=== PATIENT | female | born 1990 | race American Indian/Alaskan Native ===

== ENCOUNTER 2018-04-25 15:13 | Inpatient (IN) | payer OTHER, MEDICAID ==
[2018-04-25 16:31] LABS: Hematocrit 37.7 % (30.3-42.9); Hemoglobin 12.6 gm/dl (10.1-14.3); Mean Corpuscular HGB Conc 34 % (30-34); Mean Corpuscular Volume 83 fl (79-97); Platelet Count 194 K/mm3 (140-440); Red Blood Count 4.57 M/mm3 (3.65-5.03); Red Cell Distribution Width 15.3 % (13.2-15.2)
[2018-04-25 16:38] LABS: Bacteria,Urine 1+ /HPF (Negative); Bilirubin,Urine NEG (Negative); Blood,Urine NEG (Negative); Color,Urine Yellow (Yellow); Mucus,Urine FEW /HPF; Urobilinogen,Urine < 2.0 mg/dL (<2.0)
[2018-04-25 16:49] LABS: Alanine Aminotransferase 15 units/L (7-56); Uric Acid 3.8 mg/dL (3.5-7.6)
[2018-04-25] MEDS ORDERED: COLACE PO PRN (17:51)
[2018-04-25] MEDS ORDERED: AMBIEN PO PRN (17:51)
[2018-04-25] MEDS ORDERED: TYLENOL PO PRN (17:51)
[2018-04-25] MEDS ORDERED: TYLENOL PO ONE (17:51)
[2018-04-25 18:53] LABS: Basophils # (Auto) 0.1 K/mm3 (0.0-0.1); Basophils % (Auto) 0.5 % (0.0-1.8); Eosinophils # (Auto) 0.1 K/mm3 (0.0-0.4); Eosinophils % (Auto) 0.4 % (0.0-4.3); Hematocrit 38.4 % (30.3-42.9); Hemoglobin 12.8 gm/dl (10.1-14.3); Lymphocytes # (Auto) 1.7 K/mm3 (1.2-5.4); Lymphocytes % (Auto) 12.5 % (13.4-35.0); Mean Corpuscular HGB Conc 33 % (30-34); Mean Corpuscular Volume 82 fl (79-97); Monocytes # (Auto) 0.7 K/mm3 (0.0-0.8); Monocytes % (Auto) 5.3 % (0.0-7.3); Red Blood Count 4.66 M/mm3 (3.65-5.03); Red Cell Distribution Width 14.9 % (13.2-15.2)
[2018-04-25 18:54] LABS: Platelet Count 207 K/mm3 (140-440)
--- NOTE | 2018-04-25 19:11 | History and Physical Report ---
History of Present Illness Date of examination: 04/25/18 (pt sent from office with elevated BP) History of present illness: EDC Calculations LMP: 05/11/2018 Past History : 1 Term Births: 0 Premature Births: 0 Living Children: 0 Para: 0 Mult. Births: 0 Prev : 0 Prev. attempt? 0 Aborta: 0 Elect. Ab: 0 Spont. Ab: 0 Ectopics: 0 Past Medical History: Reviewed history from 02/02/2011 and no changes required: Asthma right leg varicosty - being followed by [facility] 2 years (not working d/t pain, previouly taking Gabapentin and tramadol for pain but has stopped for .) Past Surgical History: Reviewed history from 10/05/2012 and no changes required: negative Past Medical History Anesthesia Complications: negative Anemia: negative Autoimmune Disorder: negative Bleeding Disorder: negative Blood Transfusions: negative Breast Disease: negative Diabetes: negative Heart Disease: negative Hypertension: negative Hepatitis/Liver Disease: negative Kidney Disease/UTI: negative Neurologic/Epilepsy/Migraines: negative Phlebitis/Varicosities: negative Psychiatric: negative Pulmonary Disease/Asthma: negative Thyroid Disease: negative Hospitalizations: negative Surgery (Non-learning engineer): negative Abnormal PAP: negative Family Hx: mother - HTN and DM No Family History of Breast Cancer No Family History of Colon Cancer No Family History of Ovarvian Cancer No Family History of DVT/PE on OCP Social Hx: Patient is single no e/d/s 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 of genital herpes: no Partner hx. of genital herpes: no Rash, Viral, or Febrile illness since last LMP? no Varicella/Chicken Pox Status: Previous Disease Genetic History Congenital Heart Defect: Mom: no Dad: no Ailyn Disease: Mom: no Dad: no Thalassemia Mom: no Dad: no Neural Tube Defect Mom: no Dad: no Down's Syndrome Mom: no Dad: no Jean-Sachs Mom: no Dad: no Sickle Cell Disease/Trait Mom: no Dad: no Hemophilia Mom: no Dad: no Muscular Dystrophy Mom: no Dad: no Cystic Fibrosis Mom: no Dad: no [place] Chorea Mom: no Dad: no Mental Retardation Mom: no Dad: no Fragile X Mom: no Dad: no Other Genetic/Chromosomal Disorder Mom: no Dad: no Child w/other defect Mom: no Dad: no Enviromental Exposures Xray Exposure: no Medication, drug, or alcohol use since LMP: no Chemical/Other Exposure: no Exposure to Cat Liter: no Hx of Parvovirus (Fifth Disease): no Occupational Exposure to Children: none Active Medications (reviewed today): SHELL FISH () FLAGYL 500 MG ORAL TABLET (METRONIDAZOLE) 1 PO BID x 7 days Current Allergies (reviewed today): * SEAFOOD (Critical) Past History - Obstetrical History Expected Date of Delivery: 05/11/18 Actual Gestation: 37 Week(s) 6 Day(s) : 1 Para: 0 Hx # Term Pregnancies: 0 Number of Pregnancies: 0 Spontaneous Abortions: 0 Induced : 0 Number of Living Children: 0 Medications and Allergies Allergies Allergy/AdvReac Type Severity Reaction Status Date / Time shellfish derived Allergy Angioedema Verified 04/07/18 05:31 seafood Allergy Angioedema Uncoded 04/07/18 05:31 Home Medications Medication Instructions Recorded Confirmed Last Taken Type Vit-Fe Fumar-FA [ 1 tab PO QDAY 04/07/18 04/25/18 04/25/18 History Vitamin] metFORMIN [Glucophage] 500 mg PO BID 04/25/18 04/25/18 04/25/18 09:00 History Active Meds: Active Medications Acetaminophen (Tylenol) 650 mg PO Q4H PRN PRN Reason: Pain MILD(1-3)/Fever >100.5/TOPETE Docusate Sodium (Colace) 100 mg PO Q12H PRN PRN Reason: Constipation Multivitamins/Iron/Calcium ( Vitamin) 1 each PO QDAY OMER Zolpidem Tartrate (Ambien) 10 mg PO ONCE PRN PRN Reason: Sleep - Vital Signs Vital signs: Vital Signs Pulse BP 95 H 136/64 04/25/18 15:31 04/25/18 15:31 Temp Pulse Resp BP Pulse Ox 98.6 F 88 16 130/65 04/25/18 18:40 04/25/18 18:40 04/25/18 18:40 04/25/18 18:40 - Physical Exam Breasts: Positive: deferred Cardiovascular: Regular rate, Normal S1, Normal S2 Lungs: Positive: Clear to auscultation, Normal air movement Abdomen: Positive: normal appearance, soft, normal bowel sounds. Negative: distention, tenderness Genitourinary (Female): Positive: normal external genitalia, normal perenium Vulva: both: normal Vagina: Positive: normal moisture. Negative: discharge Cervix: Negative: lesion, discharge Uterus: Positive: normal size, normal contour Adnexa: both: normal Anus/Rectum: Positive: normal perianal skin, heme negative. Negative: rectal mass, hemorrhoids Extremities: Positive: normal Deep Tendon Reflex Grade: Normal +2 - Obstetrical FHR: category 1 Uterine Contraction Monitor Mode: External Cervical Dilatation: 0.5 Cervical Effacement Percentage: 40 station: -3 Uterine Contraction Pattern: Irregular Uterine Tone Measurement Phase: Resting Uterine Contraction Intensity: Mild Results Result Diagrams: 04/25/18 18:10 04/25/18 15:45 Abnormal lab results 04/25/18 04/25/18 04/25/18 Range/Units 15:45 15:45 18:10 WBC 13.8 H (4.5-11.0) K/mm3 MCH 27 L (28-32) pg RDW 15.3 H (13.2-15.2) % Lymph % (Auto) 12.5 L (13.4-35.0) % Seg Neutrophils % 81.3 H (40.0-70.0) % Seg Neutrophils # 11.2 H (1.8-7.7) K/mm3 Creatinine 0.5 L (0.7-1.2) mg/dL Lactate Dehydrogenase 287 H (91-180) units/L All other labs normal. GBS Positive WHITE BLOOD CELL COUNT 8.3 Thousand/uL 3.8-10.8 *1 RED BLOOD CELL COUNT 5.00 Million/uL 3.80-5.10 *2 HEMOGLOBIN 13.5 g/dL 11.7-15.5 *3 HEMATOCRIT 40.5 % 35.0-45.0 *4 MCV 81.0 fL 80.0-100.0 *5 MCH 27.0 pg 27.0-33.0 *6 MCHC 33.3 g/dL 32.0-36.0 *7 RDW 13.8 % 11.0-15.0 *8 PLATELET COUNT 267 Thousand/uL 140-400 *9 MPV 11.1 fL 7.5-12.5 *10 ABSOLUTE NEUTROPHILS 6142 cells/uL 6833-1275 *11 ABSOLUTE LYMPHOCYTES 1527 cells/uL 850-3900 *12 ABSOLUTE MONOCYTES 540 cells/uL 200-950 *13 ABSOLUTE EOSINOPHILS 58 cells/uL 15-500 *14 ABSOLUTE BASOPHILS 33 cells/uL 0-200 *15 NEUTROPHILS 74 % *16 LYMPHOCYTES 18.4 % *17 MONOCYTES 6.5 % *18 EOSINOPHILS 0.7 % *19 BASOPHILS 0.4 % *20 Tests: (2) OBSTETRIC PANEL ([id number]=) ANTIBODY SCREEN, RBC W/REFL ID, TITER AND AG "Result Below..." *21 RESULT: NO ANTIBODIES DETECTED Reference range No antibodies detected This assay is a screening test for the detection of red blood cell antibodies. The test is not to be used for pretransfusion screening or for the medical management of an alloimmunized . Tests: (3) OBSTETRIC PANEL ([id number]=) ABO GROUP B *22 RH TYPE RH(D) POSITIVE *23 Tests: (4) OBSTETRIC PANEL ([id number]=) RPR (DX) W/REFL TITER AND CONFIRMATORY TESTING NON-REACTIVE NON-REACTIVE *24 Tests: (5) OBSTETRIC PANEL ([id number]=) HEPATITIS B SURFACE ANTIGEN NON-REACTIVE NON-REACTIVE *25 Tests: (6) OBSTETRIC PANEL ([id number]=) RUBELLA ANTIBODY (IGG) 2.99 index *26 Index Interpretation ----- <0.90 Not consistent with Immunity 0.90-0.99 Equivocal > or = 1.00 Consistent with Immunity The presence of rubella IgG antibody suggests immunization or past or current infection with rubella virus. Tests: (7) CYSTIC FIBROSIS SCREEN ([id number]=) ! ETHNICITY: N/P *27 ! CF RESULT see note *28 NEGATIVE, NONE OF THE MUTATIONS LISTED Tests: (8) SICKLE CELL SCREEN W/REFL HEMOGLOBINOPATHY EVAL ([id number]=) SICKLE CELL SCREEN NEGATIVE NEGATIVE *33 Hemoglobin solubility testing alone is insufficient for detecting or confirming the presence of sickling hemoglobins in some situations. Additional testing may be required for diagnosis of hemoglobinopathies. For more information on this test go to: [email or web address]/[email or web address] Tests: (9) HEPATITIS C AB W/REFL TO HCV RNA, QN, PCR ([id number]=) HEPATITIS C ANTIBODY NON-REACTIVE NON-REACTIVE *34 ! SIGNAL TO CUT-OFF 0.01 <1.00 *35 Tests: (10) HIV 1/2 ANTIGEN/ANTIBODY,FOURTH GENERATION W/RFL ([id number]=) ! HIV AG/AB, 4TH GEN NON-REACTIVE NON-REACTIVE *36 HIV-1 antigen and HIV-1/HIV-2 antibodies were not detected. There is no laboratory evidence of HIV infection. Tests: (12) CHLAMYDIA/N. GONORRHOEAE RNA, TMA, UROGENITAL ([id number]=) CHLAMYDIA TRACHOMATIS RNA, TMA, UROGENITAL NOT DETECTED NOT DETECTED *39 NEISSERIA GONORRHOEAE RNA, TMA, UROGENITAL NOT DETECTED NOT DETECTED *40 ! COMMENT <No Reported Value> *41 This test was performed using the APTIMA COMBO2 Assay ([employer] Assessment and Plan 27yo @ 37 weeks with edema and elevated BP 1.Admit for collection of 24hr urine 2.GDM- on metformin po BID; BS ordered 3. pt was being seen by [facility] consult placed just for their notification 4. US BPP 8/8 SHARA 7 5. aware of admission - Patient Problems (1) Gestational diabetes mellitus (GDM) controlled on oral hypoglycemic drug Onset Date: ~04/25/18 Current Visit: Yes Status: Acute Qualifiers: Trimester: third trimester Qualified Code(s): O24.415 - Gestational diabetes mellitus in , controlled by oral hypoglycemic drugs Plan to address problem: metformin 500mg po BID as per [facility]. Started on 04-18-18 (2) Elevated blood pressure complicating in third trimester, antepartum Onset Date: ~04/25/18 Current Visit: Yes Status: Acute Plan to address problem: pt admitted for collection of 24hr urine
[2018-04-26] MEDS ORDERED: LACTATED RINGERS 1,000 ML IV SCH (05:00)
--- NOTE | 2018-04-26 05:09 | Ultrasound Report ---
FINAL REPORT EXAM: US OB BPP WO NON-STRESS HISTORY: wellbeing TECHNIQUE: A limited OB sonogram was obtained for evaluation of the amniotic fluid index. FINDINGS: The SHARA is 7.1 cm which is at the lower range of normal. The heart rate is 145 BPM. The fetus i s in cephalic presentation. IMPRESSION: SHARA is 7.1 cm. This is at the lower range of normal. Cephalic presentation. The heart rate is 145 BPM.
--- NOTE | 2018-04-26 05:10 | Ultrasound Report ---
FINAL REPORT EXAM: US OB LIMITED HISTORY: wellbeing TECHNIQUE: A biophysical profile was performed. FINDINGS: For breathing movements, a score of 2 out of 2 was obtained. For movements, a score of 2 out of 2 was obtained. For posture in tone, a score of 2 out of 2 was obtained. For qualitative amniotic fluid volume, a score of 2 out of 2 was obtained. The heart rate is 145 BPM. IMPRESSION: Biophysical profile score of 8 out of 8. The heart rate is 145 BPM.
[2018-04-26] MEDS ORDERED: CERVIDIL VG ONE (08:05)
[2018-04-26] MEDS ORDERED: ZOFRAN IV PRN (08:05)
[2018-04-26] MEDS ORDERED: XYLOCAINE 2% INFILTRATI ONE (08:05)
[2018-04-26] MEDS ORDERED: BRETHINE SUB-Q PRN (08:05)
--- NOTE | 2018-04-26 08:22 | Progress Note ---
Assessment and Plan reviewed b/p with Dr. Marie, dx of gestational htn made and plan established for IOL. 24h urine stopped. Plan to remove dunn, place cervidil for cervical ripening and reassess this evening. Discussed plan with patient, all questions addressed. orders in EMR and rn informed. - Patient Problems (1) Gestational HTN Current Visit: Yes Status: Acute Qualifiers: Trimester: third trimester Qualified Code(s): O13.3 - Gestational [-induced] hypertension without significant proteinuria, third trimester (2) 37 weeks gestation of Current Visit: Yes Status: Acute (3) BMI 50.0-59.9, adult Current Visit: Yes Status: Acute (4) Gestational diabetes mellitus (GDM) controlled on oral hypoglycemic drug Onset Date: ~04/25/18 Current Visit: Yes Status: Acute Qualifiers: Trimester: third trimester Qualified Code(s): O24.415 - Gestational diabetes mellitus in , controlled by oral hypoglycemic drugs (5) Group B Streptococcus carrier state affecting Current Visit: Yes Status: Acute Subjective - Subjective Date of service: 04/26/18 Principal diagnosis: IUP @ 37+6 Patient reports: new complaints, movement normal, no loss of fluid, no vaginal bleeding, no contractions Objective - Vital Signs Vital Signs: Vital Signs - 12hr 04/25/18 04/25/18 04/25/18 20:26 20:28 20:30 Temperature 98.7 F Pulse Rate 86 86 Respiratory 18 Rate Blood Pressure 121/60 O2 Sat by Pulse 94 Oximetry 04/25/18 04/25/18 04/25/18 20:35 20:40 20:45 Temperature Pulse Rate 80 71 106 H Respiratory Rate Blood Pressure O2 Sat by Pulse 98 97 96 Oximetry 04/25/18 04/25/18 04/25/18 20:50 20:55 21:00 Temperature Pulse Rate 89 92 H 87 Respiratory Rate Blood Pressure O2 Sat by Pulse 96 95 95 Oximetry 04/25/18 04/25/18 04/25/18 21:05 21:33 21:38 Temperature Pulse Rate 87 102 H 87 Respiratory Rate Blood Pressure O2 Sat by Pulse 96 97 98 Oximetry 04/25/18 04/25/18 04/25/18 21:43 21:48 21:53 Temperature Pulse Rate 97 H 100 H 109 H Respiratory Rate Blood Pressure O2 Sat by Pulse 97 95 96 Oximetry 04/25/18 04/25/18 04/25/18 21:58 22:00 22:03 Temperature Pulse Rate 102 H 97 H 106 H Respiratory Rate Blood Pressure O2 Sat by Pulse 96 94 96 Oximetry 04/25/18 04/25/18 04/25/18 22:08 22:13 22:18 Temperature Pulse Rate 101 H 99 H 102 H Respiratory Rate Blood Pressure O2 Sat by Pulse 96 94 94 Oximetry 04/25/18 04/25/18 04/25/18 22:20 22:23 22:28 Temperature Pulse Rate 101 H 100 H 100 H Respiratory Rate Blood Pressure O2 Sat by Pulse 94 93 97 Oximetry 04/25/18 04/25/18 04/25/18 22:33 22:38 22:43 Temperature Pulse Rate 101 H 100 H 102 H Respiratory Rate Blood Pressure O2 Sat by Pulse 94 98 98 Oximetry 04/25/18 04/25/18 04/25/18 22:44 22:48 22:53 Temperature Pulse Rate 100 H 96 H 98 H Respiratory Rate Blood Pressure O2 Sat by Pulse 94 95 95 Oximetry 04/25/18 04/25/18 04/25/18 22:58 23:00 23:03 Temperature Pulse Rate 103 H 101 H 94 H Respiratory Rate Blood Pressure O2 Sat by Pulse 96 94 96 Oximetry 04/25/18 04/25/18 04/25/18 23:08 23:13 23:18 Temperature Pulse Rate 98 H 96 H 104 H Respiratory Rate Blood Pressure O2 Sat by Pulse 96 98 96 Oximetry 04/25/18 04/25/18 04/25/18 23:23 23:28 23:33 Temperature Pulse Rate 97 H 88 95 H Respiratory Rate Blood Pressure O2 Sat by Pulse 97 96 97 Oximetry 04/25/18 04/25/18 04/25/18 23:38 23:43 23:48 Temperature Pulse Rate 94 H 85 100 H Respiratory Rate Blood Pressure O2 Sat by Pulse 97 97 97 Oximetry 04/25/18 04/25/18 04/26/18 23:53 23:58 00:03 Temperature Pulse Rate 101 H 93 H 95 H Respiratory Rate Blood Pressure O2 Sat by Pulse 98 96 96 Oximetry 04/26/18 04/26/18 04/26/18 00:05 00:08 00:12 Temperature Pulse Rate 95 H 92 H 95 H Respiratory Rate Blood Pressure 132/66 O2 Sat by Pulse 94 96 Oximetry 04/26/18 04/26/18 04/26/18 00:13 00:18 00:23 Temperature Pulse Rate 96 H 95 H 97 H Respiratory Rate Blood Pressure O2 Sat by Pulse 96 96 95 Oximetry 04/26/18 04/26/18 04/26/18 00:28 00:33 00:38 Temperature Pulse Rate 96 H 94 H 96 H Respiratory Rate Blood Pressure O2 Sat by Pulse 95 96 96 Oximetry 04/26/18 04/26/18 04/26/18 00:43 00:46 00:48 Temperature Pulse Rate 98 H 98 H 91 H Respiratory Rate Blood Pressure O2 Sat by Pulse 95 94 94 Oximetry 04/26/18 04/26/18 04/26/18 00:53 00:57 00:58 Temperature Pulse Rate 98 H 106 H 96 H Respiratory Rate Blood Pressure O2 Sat by Pulse 94 94 95 Oximetry 04/26/18 04/26/18 04/26/18 01:03 01:08 01:10 Temperature Pulse Rate 99 H 90 91 H Respiratory Rate Blood Pressure O2 Sat by Pulse 94 94 94 Oximetry 04/26/18 04/26/18 04/26/18 01:13 01:16 01:18 Temperature Pulse Rate 90 90 93 H Respiratory Rate Blood Pressure O2 Sat by Pulse 94 94 92 Oximetry 04/26/18 04/26/18 04/26/18 01:21 01:23 01:27 Temperature Pulse Rate 90 91 H 92 H Respiratory Rate Blood Pressure O2 Sat by Pulse 94 94 94 Oximetry 04/26/18 04/26/18 04/26/18 01:28 01:33 01:36 Temperature Pulse Rate 85 88 91 H Respiratory Rate Blood Pressure O2 Sat by Pulse 94 95 94 Oximetry 04/26/18 04/26/18 04/26/18 01:38 01:41 01:43 Temperature Pulse Rate 92 H 95 H 92 H Respiratory Rate Blood Pressure O2 Sat by Pulse 95 94 94 Oximetry 04/26/18 04/26/18 04/26/18 01:46 01:47 01:48 Temperature 98.8 F Pulse Rate 97 H 89 Respiratory Rate Blood Pressure O2 Sat by Pulse 94 95 Oximetry 04/26/18 04/26/18 04/26/18 01:52 01:53 01:58 Temperature Pulse Rate 91 H 90 89 Respiratory Rate Blood Pressure O2 Sat by Pulse 94 94 94 Oximetry 04/26/18 04/26/18 04/26/18 01:59 02:03 02:04 Temperature Pulse Rate 86 89 85 Respiratory Rate Blood Pressure O2 Sat by Pulse 94 94 94 Oximetry 04/26/18 04/26/18 04/26/18 02:08 02:10 02:13 Temperature Pulse Rate 86 84 82 Respiratory Rate Blood Pressure O2 Sat by Pulse 94 94 94 Oximetry 04/26/18 04/26/18 04/26/18 02:18 02:23 02:26 Temperature Pulse Rate 85 81 81 Respiratory Rate Blood Pressure O2 Sat by Pulse 95 95 93 Oximetry 04/26/18 04/26/18 04/26/18 02:28 02:32 02:33 Temperature Pulse Rate 81 86 90 Respiratory Rate Blood Pressure O2 Sat by Pulse 95 93 94 Oximetry 04/26/18 04/26/18 04/26/18 02:37 02:38 02:43 Temperature Pulse Rate 81 85 85 Respiratory Rate Blood Pressure O2 Sat by Pulse 94 95 95 Oximetry 04/26/18 04/26/18 04/26/18 02:48 02:53 02:57 Temperature Pulse Rate 82 85 88 Respiratory Rate Blood Pressure O2 Sat by Pulse 95 95 94 Oximetry 04/26/18 04/26/18 04/26/18 02:58 03:03 03:08 Temperature Pulse Rate 86 80 86 Respiratory Rate Blood Pressure O2 Sat by Pulse 94 95 95 Oximetry 04/26/18 04/26/18 04/26/18 03:13 04:14 04:15 Temperature 98.2 F Pulse Rate 82 86 Respiratory 18 Rate Blood Pressure 133/76 O2 Sat by Pulse 96 Oximetry - Exam Breasts: normal Cardiovascular: Regular rate Lungs: Clear to auscultation, Normal air movement Abdomen: Present: normal appearance, soft Vulva: both: normal Uterus: Present: normal FHR: auscultation normal, category 1 Uterine Contraction Monitor Mode: External Uterine Contraction Pattern: Irregular Uterine Tone Measurement Phase: Resting Extremities: normal Deep Tendon Reflex Grade: Normal +2 - Labs Labs: Abnormal Labs 04/25/18 04/25/18 04/25/18 15:45 15:45 18:10 WBC 13.8 H MCH 27 L RDW 15.3 H Lymph % (Auto) 12.5 L Seg Neutrophils % 81.3 H Seg Neutrophils # 11.2 H Creatinine 0.5 L Lactate Dehydrogenase 287 H Laboratory Results - last 24 hr 04/25/18 04/25/18 04/25/18 15:25 15:45 15:45 WBC 10.9 RBC 4.57 Hgb 12.6 Hct 37.7 MCV 83 MCH 28 MCHC 34 RDW 15.3 H Plt Count 194 Lymph % (Auto) [place] % (Auto) Eos % (Auto) Baso % (Auto) Lymph # [place] # Eos # Baso # Seg Neutrophils % Seg Neutrophils # Creatinine 0.5 L Estimated GFR > 60 POC Glucose Uric Acid 3.8 AST 21 ALT 15 Lactate Dehydrogenase 287 H Urine Color Yellow Urine Turbidity Clear Urine pH 6.0 Ur Specific [place] 1.013 Urine Protein 30 mg/dl Urine Glucose (UA) Neg Urine Ketones Tr Urine Blood Neg Urine Nitrite Neg Urine Bilirubin Neg Urine Urobilinogen < 2.0 Ur Leukocyte Esterase Neg Urine WBC (Auto) 1.0 Urine RBC (Auto) 3.0 U Epithel Cells (Auto) 9.0 Urine Bacteria (Auto) 1+ Urine Mucus Few Blood Type Antibody Screen 04/25/18 04/25/18 04/25/18 18:10 18:10 18:26 WBC 13.8 H RBC 4.66 Hgb 12.8 Hct 38.4 MCV 82 MCH 27 L MCHC 33 RDW 14.9 Plt Count 207 Lymph % (Auto) 12.5 L [place] % (Auto) 5.3 Eos % (Auto) 0.4 Baso % (Auto) 0.5 Lymph # 1.7 [place] # 0.7 Eos # 0.1 Baso # 0.1 Seg Neutrophils % 81.3 H Seg Neutrophils # 11.2 H Creatinine Estimated GFR POC Glucose 77 Uric Acid AST ALT Lactate Dehydrogenase Urine Color Urine Turbidity Urine pH Ur Specific [place] Urine Protein Urine Glucose (UA) Urine Ketones Urine Blood Urine Nitrite Urine Bilirubin Urine Urobilinogen Ur Leukocyte Esterase Urine WBC (Auto) Urine RBC (Auto) U Epithel Cells (Auto) Urine Bacteria (Auto) Urine Mucus Blood Type B POSITIVE Antibody Screen Negative
[2018-04-26] MEDS ORDERED: PITOCin/NS 30 UNIT/500ML 30 UNITS/500 ML BAG IV SCH (09:00)
[2018-04-26] MEDS ORDERED: PITOCin/NS 20 UNIT/1000ML DRIP 20 UNITS/1,000 ML BAG IV SCH (09:00)
[2018-04-26] MEDS: GLUCOPHAGE PO SCH ×2 (09:17→16:54)
[2018-04-26] MEDS: PRENATAL VITAMIN PO SCH (10:35)
--- NOTE | 2018-04-26 19:10 | Event Note ---
Date: 04/26/18 Patient resting in bed, complains of contraction, plan of care explained, questions encouraged and answered, cat 1 fht's. She voiced understanding and agrees with plan of care
[2018-04-26] MEDS: LACTATED RINGERS 1,000 ML IV SCH (20:44)
[2018-04-26] MEDS ORDERED: MINERAL OIL PO PRN (22:00)
[2018-04-26] MEDS ORDERED: TYLENOL PO ONE (22:17)
[2018-04-27] MEDS: LACTATED RINGERS 1,000 ML IV SCH (02:01)
--- NOTE | 2018-04-27 07:35 | Progress Note ---
Assessment and Plan Pt resting States her TOPETE is much better after her snack Metformin d/c Pt is not eating VSS Cat 1 strip Ctx q2-3 SVE no chg Continue pitocin per protocol IOL consulted. Subjective - Subjective Date of service: 04/27/18 (resting No c/o voiced) Principal diagnosis: IUP @ 38w Interval history: EDC Calculations LMP: 05/11/2018 Past History : 1 Term Births: 0 Premature Births: 0 Living Children: 0 Para: 0 Mult. Births: 0 Prev : 0 Prev. attempt? 0 Aborta: 0 Elect. Ab: 0 Spont. Ab: 0 Ectopics: 0 Past Medical History: Reviewed history from 02/02/2011 and no changes required: Asthma right leg varicosty - being followed by [facility] x 2 years (not working d/t pain, previouly taking Gabapentin and tramadol for pain but has stopped for .) Past Surgical History: Reviewed history from 10/05/2012 and no changes required: negative Past Medical History Anesthesia Complications: negative Anemia: negative Autoimmune Disorder: negative Bleeding Disorder: negative Blood Transfusions: negative Breast Disease: negative Diabetes: negative Heart Disease: negative Hypertension: negative Hepatitis/Liver Disease: negative Kidney Disease/UTI: negative Neurologic/Epilepsy/Migraines: negative Phlebitis/Varicosities: negative Psychiatric: negative Pulmonary Disease/Asthma: negative Thyroid Disease: negative Hospitalizations: negative Surgery (Non-child care cook): negative Abnormal PAP: negative Family Hx: mother - HTN and DM No Family History of Breast Cancer No Family History of Colon Cancer No Family History of Ovarvian Cancer No Family History of DVT/PE on OCP Social Hx: Patient is single no e/d/s 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 of genital herpes: no Partner hx. of genital herpes: no Rash, Viral, or Febrile illness since last LMP? no Varicella/Chicken Pox Status: Previous Disease Genetic History Congenital Heart Defect: Mom: no Dad: no Ailyn Disease: Mom: no Dad: no Thalassemia Mom: no Dad: no Neural Tube Defect Mom: no Dad: no Down's Syndrome Mom: no Dad: no Jean-Sachs Mom: no Dad: no Sickle Cell Disease/Trait Mom: no Dad: no Hemophilia Mom: no Dad: no Muscular Dystrophy Mom: no Dad: no Cystic Fibrosis Mom: no Dad: no [place] Chorea Mom: no Dad: no Mental Retardation Mom: no Dad: no Fragile X Mom: no Dad: no Other Genetic/Chromosomal Disorder Mom: no Dad: no Child w/other defect Mom: no Dad: no Enviromental Exposures Xray Exposure: no Medication, drug, or alcohol use since LMP: no Chemical/Other Exposure: no Exposure to Cat Liter: no Hx of Parvovirus (Fifth Disease): no Occupational Exposure to Children: none Active Medications (reviewed today): SHELL FISH () FLAGYL 500 MG ORAL TABLET (METRONIDAZOLE) 1 PO BID x 7 days Current Allergies (reviewed today): * SEAFOOD (Critical) Patient reports: new complaints, movement normal, no loss of fluid, no vaginal bleeding, no contractions Objective - Vital Signs Vital Signs: Vital Signs - 12hr 04/26/18 04/26/18 04/26/18 19:46 19:47 19:51 Temperature 98.4 F Pulse Rate 85 92 H 82 Respiratory 18 Rate Blood Pressure 136/71 Blood Pressure 136/71 [Left] O2 Sat by Pulse 97 98 Oximetry 04/26/18 04/26/18 04/26/18 19:55 19:57 20:02 Temperature Pulse Rate 96 H 80 84 Respiratory Rate Blood Pressure Blood Pressure [Left] O2 Sat by Pulse 82 L 96 97 Oximetry 04/26/18 04/26/18 04/26/18 20:07 20:12 20:17 Temperature Pulse Rate 89 95 H 92 H Respiratory Rate Blood Pressure Blood Pressure [Left] O2 Sat by Pulse 97 97 97 Oximetry 04/26/18 04/26/18 04/26/18 20:22 20:30 20:32 Temperature Pulse Rate 101 H 67 81 Respiratory Rate Blood Pressure Blood Pressure [Left] O2 Sat by Pulse 96 83 L 98 Oximetry 04/26/18 04/26/18 04/26/18 20:37 20:42 20:47 Temperature Pulse Rate 86 84 88 Respiratory Rate Blood Pressure Blood Pressure [Left] O2 Sat by Pulse 97 97 98 Oximetry 04/26/18 04/26/18 04/26/18 20:52 20:55 20:57 Temperature Pulse Rate 88 90 91 H Respiratory Rate Blood Pressure Blood Pressure [Left] O2 Sat by Pulse 96 94 94 Oximetry 04/26/18 04/26/18 04/26/18 21:02 21:07 21:09 Temperature Pulse Rate 93 H 94 H 92 H Respiratory Rate Blood Pressure Blood Pressure [Left] O2 Sat by Pulse 96 95 94 Oximetry 04/26/18 04/26/18 04/26/18 21:12 21:18 21:23 Temperature Pulse Rate 88 87 92 H Respiratory Rate Blood Pressure Blood Pressure [Left] O2 Sat by Pulse 98 97 96 Oximetry 04/26/18 04/26/18 04/26/18 21:28 21:33 21:38 Temperature Pulse Rate 83 83 80 Respiratory Rate Blood Pressure Blood Pressure [Left] O2 Sat by Pulse 97 96 97 Oximetry 04/26/18 04/26/18 04/26/18 21:43 21:48 21:53 Temperature Pulse Rate 88 92 H 90 Respiratory Rate Blood Pressure Blood Pressure [Left] O2 Sat by Pulse 96 95 96 Oximetry 04/26/18 04/26/18 04/26/18 21:58 22:03 22:08 Temperature Pulse Rate 82 87 83 Respiratory Rate Blood Pressure Blood Pressure [Left] O2 Sat by Pulse 96 97 97 Oximetry 04/26/18 04/26/18 04/26/18 22:13 22:18 22:23 Temperature Pulse Rate 88 92 H 97 H Respiratory Rate Blood Pressure 133/64 Blood Pressure [Left] O2 Sat by Pulse 98 97 97 Oximetry 04/26/18 04/26/18 04/26/18 22:28 22:31 22:33 Temperature Pulse Rate 89 95 H Respiratory 18 Rate Blood Pressure Blood Pressure [Left] O2 Sat by Pulse 97 98 Oximetry 04/26/18 04/26/18 04/26/18 22:38 22:43 22:52 Temperature Pulse Rate 83 100 H 80 Respiratory Rate Blood Pressure Blood Pressure [Left] O2 Sat by Pulse 98 97 97 Oximetry 04/26/18 04/26/18 04/26/18 22:57 23:02 23:07 Temperature Pulse Rate 87 84 84 Respiratory Rate Blood Pressure Blood Pressure [Left] O2 Sat by Pulse 97 96 97 Oximetry 04/26/18 04/26/18 04/26/18 23:12 23:14 23:17 Temperature Pulse Rate 88 87 87 Respiratory Rate Blood Pressure Blood Pressure [Left] O2 Sat by Pulse 96 94 96 Oximetry 04/26/18 04/26/18 04/27/18 23:20 23:22 01:36 Temperature Pulse Rate 94 H 87 87 Respiratory Rate Blood Pressure 121/59 Blood Pressure [Left] O2 Sat by Pulse 94 96 96 Oximetry 04/27/18 04/27/18 04/27/18 01:41 01:46 01:51 Temperature Pulse Rate 84 82 90 Respiratory Rate Blood Pressure Blood Pressure [Left] O2 Sat by Pulse 96 96 96 Oximetry 04/27/18 04/27/18 04/27/18 01:56 02:01 02:03 Temperature 98.3 F Pulse Rate 79 79 78 Respiratory 16 Rate Blood Pressure 126/70 Blood Pressure 126/70 [Left] O2 Sat by Pulse 97 96 Oximetry 04/27/18 04/27/18 04/27/18 02:06 02:07 02:11 Temperature Pulse Rate 82 86 79 Respiratory Rate Blood Pressure Blood Pressure [Left] O2 Sat by Pulse 96 94 94 Oximetry 04/27/18 04/27/18 04/27/18 02:13 02:16 02:18 Temperature Pulse Rate 87 79 83 Respiratory Rate Blood Pressure Blood Pressure [Left] O2 Sat by Pulse 94 95 93 Oximetry 04/27/18 04/27/18 04/27/18 02:21 02:24 02:26 Temperature Pulse Rate 84 86 82 Respiratory Rate Blood Pressure Blood Pressure [Left] O2 Sat by Pulse 94 94 94 Oximetry 04/27/18 04/27/18 04/27/18 02:31 02:36 02:39 Temperature Pulse Rate 86 95 H 81 Respiratory Rate Blood Pressure Blood Pressure [Left] O2 Sat by Pulse 94 93 94 Oximetry 04/27/18 04/27/18 04/27/18 02:41 02:46 02:47 Temperature Pulse Rate 81 77 79 Respiratory Rate Blood Pressure Blood Pressure [Left] O2 Sat by Pulse 94 96 94 Oximetry 04/27/18 04/27/18 04/27/18 02:51 02:54 02:56 Temperature Pulse Rate 75 76 78 Respiratory Rate Blood Pressure Blood Pressure [Left] O2 Sat by Pulse 96 94 95 Oximetry 04/27/18 04/27/18 04/27/18 03:00 03:01 03:06 Temperature Pulse Rate 82 79 74 Respiratory Rate Blood Pressure Blood Pressure [Left] O2 Sat by Pulse 94 95 96 Oximetry 04/27/18 04/27/18 04/27/18 03:11 03:16 03:19 Temperature Pulse Rate 74 68 83 Respiratory Rate Blood Pressure Blood Pressure [Left] O2 Sat by Pulse 96 98 93 Oximetry 04/27/18 04/27/18 04/27/18 03:21 03:26 03:31 Temperature Pulse Rate 77 80 77 Respiratory Rate Blood Pressure Blood Pressure [Left] O2 Sat by Pulse 97 94 96 Oximetry 04/27/18 04/27/18 04/27/18 03:34 03:36 03:39 Temperature Pulse Rate 74 63 87 Respiratory Rate Blood Pressure Blood Pressure [Left] O2 Sat by Pulse 94 98 92 Oximetry 04/27/18 04/27/18 04/27/18 03:41 03:48 03:53 Temperature Pulse Rate 74 69 74 Respiratory Rate Blood Pressure Blood Pressure [Left] O2 Sat by Pulse 97 98 97 Oximetry 04/27/18 04/27/18 04/27/18 03:58 04:01 04:03 Temperature Pulse Rate 81 89 78 Respiratory Rate Blood Pressure Blood Pressure [Left] O2 Sat by Pulse 97 94 97 Oximetry 04/27/18 04/27/18 04/27/18 04:08 04:13 04:18 Temperature Pulse Rate 76 68 69 Respiratory Rate Blood Pressure Blood Pressure [Left] O2 Sat by Pulse 97 96 97 Oximetry 04/27/18 04/27/18 04/27/18 04:23 04:28 04:33 Temperature Pulse Rate 81 74 77 Respiratory Rate Blood Pressure Blood Pressure [Left] O2 Sat by Pulse 98 97 97 Oximetry 04/27/18 04/27/18 04/27/18 04:38 04:43 04:48 Temperature Pulse Rate 82 87 84 Respiratory Rate Blood Pressure Blood Pressure [Left] O2 Sat by Pulse 97 96 96 Oximetry 04/27/18 04/27/18 04/27/18 04:53 04:55 04:58 Temperature Pulse Rate 82 76 86 Respiratory Rate Blood Pressure Blood Pressure [Left] O2 Sat by Pulse 96 94 95 Oximetry 04/27/18 04/27/18 04/27/18 05:01 05:03 05:06 Temperature Pulse Rate 87 84 85 Respiratory Rate Blood Pressure Blood Pressure [Left] O2 Sat by Pulse 94 96 92 Oximetry 04/27/18 04/27/18 04/27/18 05:08 05:13 05:14 Temperature Pulse Rate 88 84 86 Respiratory Rate Blood Pressure Blood Pressure [Left] O2 Sat by Pulse 86 97 87 Oximetry 04/27/18 04/27/18 04/27/18 05:18 05:21 05:23 Temperature Pulse Rate 73 82 78 Respiratory Rate Blood Pressure Blood Pressure [Left] O2 Sat by Pulse 93 94 96 Oximetry 04/27/18 04/27/18 04/27/18 05:28 05:33 05:35 Temperature Pulse Rate 82 89 90 Respiratory Rate Blood Pressure Blood Pressure [Left] O2 Sat by Pulse 96 95 94 Oximetry 04/27/18 04/27/18 04/27/18 05:38 05:41 05:43 Temperature Pulse Rate 83 86 86 Respiratory Rate Blood Pressure Blood Pressure [Left] O2 Sat by Pulse 96 94 96 Oximetry 04/27/18 04/27/18 04/27/18 05:48 05:53 05:58 Temperature Pulse Rate 82 79 80 Respiratory Rate Blood Pressure Blood Pressure [Left] O2 Sat by Pulse 97 97 97 Oximetry 04/27/18 04/27/18 04/27/18 06:03 06:08 06:18 Temperature Pulse Rate 81 87 68 Respiratory Rate Blood Pressure Blood Pressure [Left] O2 Sat by Pulse 96 97 95 Oximetry 04/27/18 04/27/18 04/27/18 06:21 06:23 06:26 Temperature Pulse Rate 62 70 78 Respiratory Rate Blood Pressure Blood Pressure [Left] O2 Sat by Pulse 93 95 93 Oximetry 04/27/18 04/27/18 04/27/18 06:28 06:32 06:33 Temperature Pulse Rate 65 69 69 Respiratory Rate Blood Pressure Blood Pressure [Left] O2 Sat by Pulse 83 L 94 96 Oximetry 04/27/18 04/27/18 04/27/18 06:37 06:38 06:43 Temperature Pulse Rate 71 69 68 Respiratory Rate Blood Pressure Blood Pressure [Left] O2 Sat by Pulse 94 98 97 Oximetry 04/27/18 04/27/18 04/27/18 06:48 06:53 06:58 Temperature Pulse Rate 75 73 87 Respiratory Rate Blood Pressure Blood Pressure [Left] O2 Sat by Pulse 97 96 96 Oximetry 04/27/18 04/27/18 04/27/18 07:03 07:08 07:13 Temperature Pulse Rate 87 76 74 Respiratory Rate Blood Pressure Blood Pressure [Left] O2 Sat by Pulse 96 97 97 Oximetry 04/27/18 07:18 Temperature Pulse Rate 87 Respiratory Rate Blood Pressure Blood Pressure [Left] O2 Sat by Pulse 98 Oximetry - Exam Breasts: deferred Cardiovascular: Regular rate Lungs: Normal air movement Abdomen: Present: normal appearance, soft. Absent: distention, tenderness Uterus: Present: normal FHR: auscultation normal Uterine Contraction Monitor Mode: External Cervical Dilatation: 0.5 Cervical Effacement Percentage: 50 station: -2 Uterine Contraction Pattern: Regular Uterine Tone Measurement Phase: Resting Uterine Contraction Intensity: Mild Extremities: edema Deep Tendon Reflex Grade: Normal +2 - Labs Labs: Abnormal Labs 04/25/18 04/25/18 04/25/18 15:45 15:45 18:10 WBC 13.8 H MCH 27 L RDW 15.3 H Lymph % (Auto) 12.5 L Seg Neutrophils % 81.3 H Seg Neutrophils # 11.2 H Creatinine 0.5 L POC Glucose Lactate Dehydrogenase 287 H 04/26/18 15:07 WBC MCH RDW Lymph % (Auto) Seg Neutrophils % Seg Neutrophils # Creatinine POC Glucose 59 L Lactate Dehydrogenase Laboratory Results - last 24 hr 04/26/18 04/26/18 04/26/18 15:07 16:25 18:43 POC Glucose 59 L 91 80 04/26/18 04/27/18 22:11 06:05 POC Glucose 82 70
[2018-04-27] MEDS ORDERED: PITOCin/NS 30 UNIT/500ML 30 UNITS/500 ML BAG IV SCH (08:00)
--- NOTE | 2018-04-27 17:41 | Progress Note ---
Assessment and Plan Pt resting No voiced c/o SVE no chg Discussed with family and pt Serial Induction All questions addressed. Pitocin off OOB for PM care Diet Will place Cervidil @ 1900 Pt agrees with POC Dr[address]Youngblood bello. Subjective - Subjective Date of service: 04/27/18 (Pit off PM Care diet) Principal diagnosis: IUP @ 38w Interval history: EDC Calculations LMP: 05/11/2018 Past History : 1 Term Births: 0 Premature Births: 0 Living Children: 0 Para: 0 Mult. Births: 0 Prev : 0 Prev. attempt? 0 Aborta: 0 Elect. Ab: 0 Spont. Ab: 0 Ectopics: 0 Past Medical History: Reviewed history from 02/02/2011 and no changes required: Asthma right leg varicosty - being followed by [facility] x 2 years (not worki ng d/t pain, previouly taking Gabapentin and tramadol for pain but has stopped for .) Past Surgical History: Reviewed history from 10/05/2012 and no changes required: negative Past Medical History Anesthesia Complications: negative Anemia: negative Autoimmune Disorder: negative Bleeding Disorder: negative Blood Transfusions: negative Breast Disease: negative Diabetes: negative Heart Disease: negative Hypertension: negative Hepatitis/Liver Disease: negative Kidney Disease/UTI: negative Neurologic/Epilepsy/Migraines: negative Phlebitis/Varicosities: negative Psychiatric: negative Pulmonary Disease/Asthma: negative Thyroid Disease: negative Hospitalizations: negative 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 of genital herpes: no Partner hx. of genital herpes: no Rash, Viral, or Febrile illness since last LMP? no Varicella/Chicken Pox Status: Previous Disease Genetic History Congenital Heart Defect: Mom: no Dad: no Ailyn Disease: Mom: no Dad: no Thalassemia Mom: no Dad: no Neural Tube Defect Mom: no Dad: no Down's Syndrome Mom: no Dad: no Jean-Sachs Mom: no Dad: no Sickle Cell Disease/Trait Mom: no Dad: no Hemophilia Mom: no Dad: no Muscular Dystrophy Mom: no Dad: no Cystic Fibrosis Mom: no Dad: no [place] Chorea Mom: no Dad: no Mental Retardation Mom: no Dad: no Fragile X Mom: no Dad: no Other Genetic/Chromosomal Disorder Mom: no Dad: no Child w/other defect Mom: no Dad: no Enviromental Exposures Xray Exposure: no Medication, drug, or alcohol use since LMP: no Chemical/Other Exposure: no Exposure to Cat Liter: no Hx of Parvovirus (Fifth Disease): no Occupational Exposure to Children: none Active Medications (reviewed today): SHELL FISH () FLAGYL 500 MG ORAL TABLET (METRONIDAZOLE) 1 PO BID x 7 days Current Allergies (reviewed today): * SEAFOOD (Critical) Patient reports: new complaints, movement normal, no loss of fluid, no vaginal bleeding, no contractions Objective - Vital Signs Vital Signs: Vital Signs - 12hr 04/27/18 04/27/18 04/27/18 05:41 05:43 05:48 Temperature Pulse Rate 86 86 82 Respiratory Rate Blood Pressure O2 Sat by Pulse 94 96 97 Oximetry 04/27/18 04/27/18 04/27/18 05:53 05:58 06:03 Temperature Pulse Rate 79 80 81 Respiratory Rate Blood Pressure O2 Sat by Pulse 97 97 96 Oximetry 04/27/18 04/27/18 04/27/18 06:08 06:18 06:21 Temperature Pulse Rate 87 68 62 Respiratory Rate Blood Pressure O2 Sat by Pulse 97 95 93 Oximetry 04/27/18 04/27/18 04/27/18 06:23 06:26 06:28 Temperature Pulse Rate 70 78 65 Respiratory Rate Blood Pressure O2 Sat by Pulse 95 93 83 L Oximetry 04/27/18 04/27/18 04/27/18 06:32 06:33 06:37 Temperature Pulse Rate 69 69 71 Respiratory Rate Blood Pressure O2 Sat by Pulse 94 96 94 Oximetry 04/27/18 04/27/18 04/27/18 06:38 06:43 06:48 Temperature Pulse Rate 69 68 75 Respiratory Rate Blood Pressure O2 Sat by Pulse 98 97 97 Oximetry 04/27/18 04/27/18 04/27/18 06:53 06:58 07:03 Temperature Pulse Rate 73 87 87 Respiratory Rate Blood Pressure O2 Sat by Pulse 96 96 96 Oximetry 04/27/18 04/27/18 04/27/18 07:08 07:13 07:18 Temperature Pulse Rate 76 74 87 Respiratory Rate Blood Pressure O2 Sat by Pulse 97 97 98 Oximetry 04/27/18 04/27/18 04/27/18 08:35 09:00 12:27 Temperature 97.9 F Pulse Rate 74 78 Respiratory 16 Rate Blood Pressure 104/52 116/53 O2 Sat by Pulse Oximetry - Exam Breasts: deferred Cardiovascular: Regular rate Lungs: Clear to auscultation, Normal air movement Abdomen: Present: normal appearance, soft. Absent: distention, tenderness Uterus: Present: normal FHR: auscultation normal, category 1 Uterine Contraction Monitor Mode: External Cervical Dilatation: 0.5 Cervical Effacement Percentage: 50 station: -3 Uterine Contraction Pattern: Regular Uterine Tone Measurement Phase: Resting Uterine Contraction Intensity: Moderate Extremities: normal Deep Tendon Reflex Grade: Normal +2 - Labs Labs: Abnormal Labs 04/25/18 04/25/18 04/25/18 15:45 15:45 18:10 WBC 13.8 H MCH 27 L RDW 15.3 H Lymph % (Auto) 12.5 L Seg Neutrophils % 81.3 H Seg Neutrophils # 11.2 H Creatinine 0.5 L POC Glucose Lactate Dehydrogenase 287 H 04/26/18 15:07 WBC MCH RDW Lymph % (Auto) Seg Neutrophils % Seg Neutrophils # Creatinine POC Glucose 59 L Lactate Dehydrogenase Laboratory Results - last 24 hr 04/26/18 04/26/18 04/27/18 18:43 22:11 06:05 POC Glucose 80 82 70
[2018-04-27] MEDS ORDERED: CERVIDIL VG ONE (18:30)
[2018-04-27] MEDS ORDERED: MINERAL OIL PO PRN (19:10)
[2018-04-27] MEDS ORDERED: AMBIEN PO ONE (21:00)
--- NOTE | 2018-04-28 08:45 | Progress Note ---
Assessment and Plan Will proceed with AROM and IUPC/ISE and pitocin.Patient agrees with plan of care - Patient Problems (1) 38 weeks gestation of Current Visit: Yes Status: Acute (2) BMI 50.0-59.9, adult Current Visit: Yes Status: Acute (3) Gestational HTN Current Visit: Yes Status: Acute Qualifiers: Trimester: third trimester Qualified Code(s): O13.3 - Gestational [-induced] hypertension without significant proteinuria, third trimester (4) Gestational diabetes mellitus (GDM) controlled on oral hypoglycemic drug Onset Date: ~04/25/18 Current Visit: Yes Status: Acute Qualifiers: Trimester: third trimester Qualified Code(s): O24.415 - Gestational diabetes mellitus in , controlled by oral hypoglycemic drugs (5) Group beta Strep positive Current Visit: Yes Status: Acute Subjective - Subjective Date of service: 04/28/18 Principal diagnosis: IUP @ 38w, GHTN IOL Patient reports: new complaints, movement normal, contractions, no loss of fluid, no vaginal bleeding Objective - Vital Signs Vital Signs: Vital Signs - 12hr 04/28/18 05:13 Pulse Rate 73 Blood Pressure 129/67 - Exam Breasts: deferred Lungs: Normal air movement Abdomen: Absent: tenderness Vulva: both: normal Uterus: Present: fundal height below umbilicus. Absent: tenderness FHR: category 1 Uterine Contraction Monitor Mode: External Cervical Dilatation: 1 Cervical Effacement Percentage: 50 station: -2 Extremities: normal Deep Tendon Reflex Grade: Normal +2 - Labs Labs: Abnormal Labs 04/25/18 04/25/18 04/25/18 15:45 15:45 18:10 WBC 13.8 H MCH 27 L RDW 15.3 H Lymph % (Auto) 12.5 L Seg Neutrophils % 81.3 H Seg Neutrophils # 11.2 H Creatinine 0.5 L POC Glucose Lactate Dehydrogenase 287 H 04/26/18 15:07 WBC MCH RDW Lymph % (Auto) Seg Neutrophils % Seg Neutrophils # Creatinine POC Glucose 59 L Lactate Dehydrogenase Laboratory Results - last 24 hr 04/27/18 04/28/18 22:06 06:46 POC Glucose 90 82
[2018-04-28] MEDS ORDERED: PITOCin/NS 30 UNIT/500ML 30 UNITS/500 ML BAG IV SCH ×2 (09:00)
[2018-04-28] MEDS ORDERED: LACTATED RINGERS 1,000 ML IV SCH (09:00)
[2018-04-28] MEDS ORDERED: XYLOCAINE 2% INFILTRATI NR (09:30)
[2018-04-28] MEDS: LACTATED RINGERS 1,000 ML IV SCH ×4 (09:33→23:36)
[2018-04-28] MEDS ORDERED: AMPICILLIN/NS 2 GM/100 ML 2 GM/100 ML BAG IV ONE (10:00)
[2018-04-28] MEDS: PRENATAL VITAMIN PO SCH ×2 (10:03→10:30)
--- NOTE | 2018-04-28 13:27 | Progress Note ---
Assessment and Plan Continue pitocin - Patient Problems (1) 38 weeks gestation of Current Visit: Yes Status: Acute (2) BMI 50.0-59.9, adult Current Visit: Yes Status: Acute (3) Gestational HTN Current Visit: Yes Status: Acute Qualifiers: Trimester: third trimester Qualified Code(s): O13.3 - Gestational [-induced] hypertension without significant proteinuria, third trimester (4) Gestational diabetes mellitus (GDM) controlled on oral hypoglycemic drug Onset Date: ~04/25/18 Current Visit: Yes Status: Acute Qualifiers: Trimester: third trimester Qualified Code(s): O24.415 - Gestational diabetes mellitus in , controlled by oral hypoglycemic drugs (5) Group beta Strep positive Current Visit: Yes Status: Acute Subjective - Subjective Date of service: 04/28/18 Principal diagnosis: IUP @ 38w, GHTN IOL Patient reports: new complaints, movement normal, contractions, no loss of fluid, no vaginal bleeding Objective - Vital Signs Vital Signs: Vital Signs - 12hr 04/28/18 04/28/18 04/28/18 05:13 09:28 09:43 Pulse Rate 73 89 83 Blood Pressure 129/67 143/65 140/69 04/28/18 04/28/18 04/28/18 09:58 10:13 10:28 Pulse Rate 81 81 84 Blood Pressure 135/63 136/66 138/70 04/28/18 04/28/18 04/28/18 10:58 11:13 11:28 Pulse Rate 75 75 81 Blood Pressure 135/72 139/70 149/76 04/28/18 04/28/18 04/28/18 11:43 11:58 12:13 Pulse Rate 80 72 71 Blood Pressure 140/72 137/68 141/79 04/28/18 04/28/18 04/28/18 12:29 12:44 13:00 Pulse Rate 68 66 68 Blood Pressure 136/71 136/70 131/65 04/28/18 13:13 Pulse Rate 64 Blood Pressure 141/69 - Exam Breasts: deferred Lungs: Normal air movement Abdomen: Present: normal appearance, normal bowel sounds Vulva: both: normal Uterus: Present: fundal height above umbilicus. Absent: tenderness FHR: category 1 Cervical Dilatation: 1.5 (AROM with ISE/IUPC placement after patient gave verbal consent obtained) Uterine Contraction Frequency (min): 2-3 Uterine Contraction Pattern: Regular Extremities: normal - Labs Labs: Abnormal Labs 04/25/18 04/25/18 04/25/18 15:45 15:45 18:10 WBC 13.8 H MCH 27 L RDW 15.3 H Lymph % (Auto) 12.5 L Seg Neutrophils % 81.3 H Seg Neutrophils # 11.2 H Creatinine 0.5 L POC Glucose Lactate Dehydrogenase 287 H 04/26/18 15:07 WBC MCH RDW Lymph % (Auto) Seg Neutrophils % Seg Neutrophils # Creatinine POC Glucose 59 L Lactate Dehydrogenase Laboratory Results - last 24 hr 04/27/18 04/28/18 04/28/18 22:06 06:46 09:40 POC Glucose 90 82 Blood Type B POSITIVE Antibody Screen Negative
[2018-04-28] MEDS: AMPICILLIN/NS 1 GM/50 ML 1 GM/50 ML BAG IV SCH ×3 (13:58→23:33)
[2018-04-28] MEDS ORDERED: SUBLIMAZE IV ONE (16:46)
--- NOTE | 2018-04-28 18:32 | Event Note ---
Date: 04/28/18 Patient calling out requesting another dose of pain medication. SVE unchanged from prior exam. Fentanyl IV ordered. Cat 1 tracing, pt remains afebrile. Continue current POC.
[2018-04-28] MEDS: SUBLIMAZE IV PRN ×2 (18:44→21:47)
[2018-04-28] MEDS ORDERED: NARCAN 2 MG/2 ML IV PRN (22:27)
--- NOTE | 2018-04-28 22:27 | Anesthesia Consultation ---
Anesthesia Consult and Med Hx Date of service: 04/28/18 - Airway Anesthetic Teeth Evaluation: Good ROM Head & Neck: Adequate Mental/Hyoid Distance: Adequate Mallampati Class: Class III Intubation Access Assessment: Possibly Difficult - Pre-Operative Health Status ASA Pre-Surgery Classification: ASA3 Proposed Anesthetic Plan: Epidural, Spinal - Pulmonary Hx Asthma: No COPD: No Hx Pneumonia: No - Cardiovascular System Hx Hypertension: No - Central Nervous System Hx Seizures: No Hx Psychiatric Problems: No - Endocrine Hx Renal Disease: No Hx End Stage Renal Disease: No Hx Hypothyroidism: No Hx Hyperthyroidism: No - Hematic Hx Anemia: No Hx Sickle Cell Disease: No - Other Systems Hx Alcohol Use: No Hx Obesity: Yes (BMI 51.6)
[2018-04-28] MEDS ORDERED: fentaNYL-BUPIV 2 MCG/ML-0.125% 200 MCG/100 ML BAG EPIDURAL SCH (23:00)
--- NOTE | 2018-04-29 00:19 | Anesthesia Day of Surgery ---
Anesthesia Day of Surgery - Day of Surgery Patient Examined: Yes Patient H&P Reviewed: Yes Patient is NPO: Yes
[2018-04-29] MEDS ORDERED: DILAUDID IV PRN (00:20)
[2018-04-29] MEDS ORDERED: TORADOL IV PRN (00:20)
[2018-04-29] MEDS ORDERED: DILAUDID IM PRN (00:20)
[2018-04-29] MEDS ORDERED: BICITRA PO ONE (00:25)
[2018-04-29] MEDS ORDERED: PEPCID IV ONE (00:25)
[2018-04-29] MEDS ORDERED: REGLAN IV ONE (00:25)
--- NOTE | 2018-04-29 00:28 | Event Note ---
Date: 04/29/18 No cervical change since AROM at 1300, options reviewed, questions encouraged and answered. She desires to proceed with c/s . Risks associated with c/s discussed, including but not limited to, bleeding, infection, injury to bowel/bladder. She was informed may require a blood transfusion with risks for infection or reaction that may be fatal. She's aware she may require a c/s with all of her other pregnancies. Questions were encouraged and answered, consents were reviewed and signed, she voiced understanding and desires to proceed with c/s.
[2018-04-29] MEDS ORDERED: PITOCin/NS 20 UNIT/1000ML DRIP 20 UNITS/1,000 ML BAG IV SCH ×2 (01:00→05:22)
[2018-04-29] MEDS ORDERED: LACTATED RINGERS 1,000 ML IV SCH ×2 (01:00→14:00)
[2018-04-29] MEDS ORDERED: ANCEF/STERILE WATER 2 GM/20 ML 2 GM/20 ML SYRINGE IV NR (01:00)
[2018-04-29] MEDS ORDERED: XYLOCAINE MPF 2% ONE ×4 (02:00→02:26)
[2018-04-29] MEDS ORDERED: WATER FOR IRRIG STERILE IR ONE (02:00)
[2018-04-29] MEDS ORDERED: NACL 0.9% IR ONE (02:00)
[2018-04-29] MEDS ORDERED: DIPRIVAN 10 MG/ML IV ONE (02:30)
[2018-04-29] MEDS ORDERED: ASTRAMORPH PF 10MG/10ML ONE (02:37)
[2018-04-29] MEDS ORDERED: DILAUDID ONE (02:37)
[2018-04-29] MEDS ORDERED: LACTATED RINGERS 1,000 ML ONE (02:45)
--- NOTE | 2018-04-29 03:24 | Operative Report ---
Operative Report Operative Report: Date: 04/29/2018 Preoperative diagnosis: 1. Intrauterine at 38 weeks 2. Gestational hypertension 3. Failed induction of labor 4. Gestational diabetes 5. Morbid obesity Postoperative diagnosis: 1. Intrauterine at 38 weeks 2. Gestational hypertension 3. Failed induction of labor 4. Gestational diabetes 5. Morbid obesity Procedure: Low uterine transverse incision for delivery Surgeon: Chani Marie MD Foot Worker: Magalie Mercer CST Anesthesia: Epidural Anesthesiologist: Dr. Pickering Estimated blood loss: 700mL Urine out: [] mL Findings: Live born male . Weight 6 lbs. 12 oz. Apgars 8 at 1 minute and 9 at 5 minutes. Uterus 3 cm subserosal anterior fibroid, tubes grossly normal, ovaries grossly normal. Procedure: After risk, benefits, complications, consequences and alternatives for this procedure were discussed with patient and consents were reviewed and signed, she was taken to the OR where epidural anesthesia was bolused. She was then placed in the left lateral tilt position, and prepped and draped in the usual sterile fashion. Timeout was performed, and an appropriate level of anesthesia was noted, a Pfannenstiel incision was made and extended to the fascia which was incised and extended in the lateral directions. The overlying fascia was sharply dissected away from the underlying rectus muscles in the superior and inferior directions. The midline was entered bluntly. The vesicouterine fold was incised and with blunt dissection the bladder flap was created. A transverse incision was made in the lower uterine segment and extended in superiolateral direction with finger fractionation. Clear fluid was noted. The was delivered from our OT position. Mouth and nose were bulb suctioned. Spontaneous cry and excellent tone were noted. Cord was doubly clamped and cut. The was given to /resuscitation team present. The placenta was manually extracted. The uterus was then exteriorized and cleared of any further products of conception or placental tissue. The incision was reapproximated using 0 Vicryl in a running interlocking stitch. Grossly normal uterus, tubes and ovaries were noted. Once hemostasis was noted, the uterus was allowed back into the pelvic cavity. The pelvis was irrigated with warm normal saline. Again hemostasis was noted . Surgicel applied for further hemostasis. Interceed was then placed to prevent adhesions. Then attention was turned to the rectus muscles. The rectus muscles reapproximated using 0 Vicryl in a simple interrupted stitch x 3. Once hemostasis was noted, the fascia was reapproximated using 0 Vicryl running stitch fashion. Once hemostasis was noted skin incision was reapproximated using 4-0 Vicryl on a Seven needle in a subcuticular manner. Counts were correct 3. Patient tolerated procedure well state recovery room in stable condition.
[2018-04-29] MEDS ORDERED: TYLENOL PO PRN (05:22)
[2018-04-29] MEDS ORDERED: NARCAN 0.4 MG/1 ML IV PRN (05:22)
[2018-04-29] MEDS ORDERED: ZOFRAN IV PRN (05:22)
[2018-04-29] MEDS ORDERED: PERCOCET 5/325 PO PRN (05:22)
[2018-04-29] MEDS ORDERED: MILK OF MAGNESIA PO PRN (05:22)
[2018-04-29] MEDS ORDERED: SODIUM CHLORIDE FLUSH SYRINGE 10 ML IV NR (05:22)
[2018-04-29] MEDS ORDERED: MYLICON PO PRN (05:22)
[2018-04-29] MEDS ORDERED: LANSINOH TP PRN (05:22)
[2018-04-29] MEDS ORDERED: TUCKS PAD TP PRN (05:22)
[2018-04-29] MEDS ORDERED: PHENERGAN PR PRN (05:22)
[2018-04-29] MEDS: ANCEF/NS 1 GM/50 ML 1 GM/50 ML BAG IV SCH ×2 (06:28→14:28)
[2018-04-29 16:14] LABS: Hematocrit 34.2 % (30.3-42.9); Hemoglobin 11.4 gm/dl (10.1-14.3)
[2018-04-30] MEDS: IBUPROFEN PO PRN ×2 (00:50→06:22)
[2018-04-30] MEDS ORDERED: BOOSTRIX IM ONE ×2 (03:31→06:35)
--- NOTE | 2018-04-30 08:27 | Progress Note ---
Assessment and Plan Pt w/o complaint Voicing concerns @ NB blood sugars Encouraged all questions to NICU. VSS one BP 150/70 will monitor FF below umb Lochia scant Dressing D&I to be removed H&H stable Asymptomatic Doing well s/p c/s P: continue pathway Abdominal binder Advance diet and activity Subjective - Subjective Date of service: 04/30/18 (Pt doing well) Principal diagnosis: Day # 1 s/p section Interval history: EDC Calculations LMP: 05/11/2018 Past History : 1 Term Births: 0 Premature Births: 0 Living Children: 0 Para: 0 Mult. Births: 0 Prev : 0 Prev. attempt? 0 Aborta: 0 Elect. Ab: 0 Spont. Ab: 0 Ectopics: 0 Past Medical History: Reviewed history from 02/02/2011 and no changes required: Asthma right leg varicosty - being followed by [facility] x 2 years (not working d/t pain, previouly taking Gabapentin and tramadol for pain but has stopped for .) Past Surgical History: Reviewed history from 10/05/2012 and no changes required: negative Past Medical History Anesthesia Complications: negative Anemia: negative Autoimmune Disorder: negative Bleeding Disorder: negative Blood Transfusions: negative Breast Disease: negative Diabetes: negative Heart Disease: negative Hypertension: negative Hepatitis/Liver Disease: negative Kidney Disease/UTI: negative Neurologic/Epilepsy/Migraines: negative Phlebitis/Varicosities: negative Psychiatric: negative Pulmonary Disease/Asthma: negative Thyroid Disease: negative Hospitalizations: negative Surgery (Non-pastry cook helper): negative Abnormal PAP: negative Family Hx: mother - HTN and DM No Family History of Breast Cancer No Family History of Colon Cancer No Family History of Ovarvian Cancer No Family History of DVT/PE on OCP Social Hx: Patient is single no e/d/s 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 of genital herpes: no Partner hx. of genital herpes: no Rash, Viral, or Febrile illness since last LMP? no Varicella/Chicken Pox Status: Previous Disease Genetic History Congenital Heart Defect: Mom: no Dad: no Ailyn Disease: Mom: no Dad: no Thalassemia Mom: no Dad: no Neural Tube Defect Mom: no Dad: no Down's Syndrome Mom: no Dad: no Jean-Sachs Mom: no Dad: no Sickle Cell Disease/Trait Mom: no Dad: no Hemophilia Mom: no Dad: no Muscular Dystrophy Mom: no Dad: no Cystic Fibrosis Mom: no Dad: no Martha Chorea Mom: no Dad: no Mental Retardation Mom: no Dad: no Fragile X Mom: no Dad: no Other Genetic/Chromosomal Disorder Mom: no Dad: no Child w/other defect Mom: no Dad: no Enviromental Exposures Xray Exposure: no Medication, drug, or alcohol use since LMP: no Chemical/Other Exposure: no Exposure to Cat Liter: no Hx of Parvovirus (Fifth Disease): no Occupational Exposure to Children: none Active Medications (reviewed today): SHELL FISH () FLAGYL 500 MG ORAL TABLET (METRONIDAZOLE) 1 PO BID x 7 days Current Allergies (reviewed today): * SEAFOOD (Critical) Patient reports: appetite normal, voiding normally, pain well controlled, ambulating normally [place]: doing well Objective - Vital Signs Latest vital signs: Vital Signs Temp Pulse Resp BP BP Pulse Ox 04/30/18 07:25 97.6 F 66 18 129/74 04/30/18 07:22 18 04/30/18 06:22 18 04/30/18 01:50 18 04/30/18 00:50 8 L 04/30/18 00:40 98.3 F 86 18 135/83 97 04/29/18 20:46 98.5 F 94 H 20 153/79 98 04/29/18 17:15 98.9 F 100 H 18 143/81 96 04/29/18 08:24 97.6 F 95 H 18 132/69 95 Intake and Output 04/29/18 04/30/18 04/30/18 22:59 06:59 14:59 Intake Total 960 240 Balance 960 240 Intake: Oral 480 240 Intake, Free Water 480 Other: Total, Intake Amount 240 240 # Voids Void 1 1 - Exam Breasts: Present: normal Cardiovascular: Present: Normal S1 Lungs: Present: Normal air movement Abdomen: Present: normal appearance, soft Uterus: Present: normal, fundal height below umbilicus Extremities: Present: normal, edema Deep Tendon Reflex Grade: Normal +2 Incision: Present: normal, dry, intact, dressed
[2018-05-01] MEDS: IBUPROFEN PO PRN (00:27)
--- NOTE | 2018-05-01 08:43 | Discharge Summary ---
Providers - Providers Date of Admission: 04/29/18 02:09 Date of discharge: 05/01/18 (pt desires d/c) Attending physician: UMER MILLS 04/25/18 19:36 Consult to Physician [CONS] Routine Comment: Consulting Provider: YANET ZHANG Physician Instructions: Reason For Exam: continuity of care 04/29/18 05:22 Consult to Incising Machine Operator [CONS] Routine Reason For Exam: Primary care physician: GEE KERR Hospitalization Reason for admission: induction of labor Delivery: Procedure: primary low transverse Episiotomy: none Laceration: none Incision: normal, dry, intact Other procedures: none complications: none Discharge diagnosis: IUP at term delivered baby: male Hospital course: uncomplicated section Failed IOL Pt w/o complaint VSS FF below umb Lochia scant Incision D&I Asyptomatic anemia Doing well s/p section P: d/c today with instructions RTO 1 week post and circ. Condition at discharge: Good Disposition: DC-01 TO HOME OR SELFCARE - Discharge Diagnoses (1) delivery delivered Status: Acute Comment: RTO 1 week postop care Plan - Discharge Medications Prescriptions: Ibuprofen [Motrin 800 MG tab] 800 mg PO TID PRN #30 tablet PRN Reason: Pain Lidocain2.5%/Prilocai2.5% [Emla] 5 gm TP ONCE #1 tube oxyCODONE /ACETAMINOPHEN [Percocet 5/325 mg] 1 - 2 tab PO Q4HR PRN #20 tablet PRN Reason: Pain - Provider Discharge Summary Activity: routine, no sex for 6 weeks, no heavy lifting 4 weeks, no strenuous exercise Diet: routine Instructions: routine Additional instructions: [] Smoking cessation referral if applicable(refer to patient education folder for contact #) [] Refer to [facility]'s [facility] Booklet Call your doctor immediately for: * Fever > 100.5 * Heavy vaginal bleeding ( >1 pad per hour) * Severe persistent headache * Shortness of breath * Reddened, hot, painful area to leg or breast * Drainage or odor from incision. * Keep incision clean and dry at all times and follow doctor's instructions regarding bathing/showering - Follow up plan Follow up: GEE KERR MD [Primary Care Provider] - 7 Days (Congratulations! Please call [phone] to schedule your postoperative visit and your son's circumcision in 1 week. Bring the EMLA cream with you to his visit. Take medications as prescribed. Call with concerns. )
[2018-05-01 16:45] VITALS: BP 129/70
== END 2018-05-01 16:20 | disposition home or self-care (01) | DRG 788 ==
LOC: TRG 15:13 → LD 22:00 → UNDOADMOB 22:00 → OBSVTOIN 04-26 12:48 → INTOOBSV 04-26 12:48 → UNDOADMOB 04-29 02:09 → INTOOBSV 04-29 02:09 → OBSVTOIN 04-29 02:09 → LD 04-29 02:09 → OB 04-29 04:54
PROVIDERS: ADMIT Obstetrics & Gynecology; ATTEND Obstetrics & Gynecology
PROC: 10907ZC Drainage of Amniotic Fluid, Therapeutic from Products of Conception, Via Natural or Artificial Opening (ICD-10-PCS; 2018-04-28)
PROC: 3E033VJ Introduction of Other Hormone into Peripheral Vein, Percutaneous Approach (ICD-10-PCS; 2018-04-28)
PROC: 10D00Z1 Extraction of Products of Conception, Low, Open Approach (ICD-10-PCS; principal; 2018-04-29)
PROC: 3E0234Z Introduction of Serum, Toxoid and Vaccine into Muscle, Percutaneous Approach (ICD-10-PCS; 2018-04-30)
DX: O13.4 Gestational [pregnancy-induced] hypertension without significant proteinuria, complicating childbirth (principal); O61.9 Failed induction of labor, unspecified; O99.52 Diseases of the respiratory system complicating childbirth; O24.425 Gestational diabetes mellitus in childbirth, controlled by oral hypoglycemic drugs; O99.824 Streptococcus B carrier state complicating childbirth; O99.214 Obesity complicating childbirth; O34.13 Maternal care for benign tumor of corpus uteri, third trimester; D25.9 Leiomyoma of uterus, unspecified; E66.01 Morbid (severe) obesity due to excess calories; J45.909 Unspecified asthma, uncomplicated; O90.81 Anemia of the puerperium; D64.9 Anemia, unspecified; Z37.0 Single live birth; Z23 Encounter for immunization; Z3A.37 37 weeks gestation of pregnancy; Z91.013 Allergy to seafood
CPT/HCPCS: 36415; 59200; 76815; 76819; 81001; 82565; 82962; 83615; 84450; 84460; 84550; 85014; 85018; 85025; 85027; 86850; 86900; 86901; 88307; 90471; 90715; G0378; A6250; C1765; J0290; J0690; J1170; J1885; J2274; J2405; J2590; J2704; J2765; J3010; J7120